=== PATIENT | female | born 1955 | race Two or more races ===

== ENCOUNTER 2020-12-29 00:44 | Emergency (ER) | payer OTHER ==
[~2020-12-29] VITALS: Ht 157.5 cm; Wt 87.1 kg
--- NOTE | 2020-12-29 00:44 | NUR ---
SYNCOPAL EPISODE WHILE VISITING FAMILY IN [facility], PT AAOX4, DENIES ANY SOB/CP, VSS, PENDING ER PROVIDER EVAL
[2020-12-29 01:23] LABS: EOSINOPHILS % (AUTO) 7.1 % (0.0-6.0); HEMATOCRIT 43 % (33-45); HEMOGLOBIN 14.3 g/dL (11.5-14.8); LYMPHOCYTES # (AUTO) 1.1 K/uL (0.8-4.8); LYMPHOCYTES % (AUTO) 14.9 % (20.0-44.0); MEAN CORPUSCULAR HGB CONC 33 g/dl (31.0-36.0); MEAN CORPUSCULAR VOLUME 86 fL (82-100); MONOCYTES # (AUTO) 0.6 K/uL (0.1-1.30); NEUTROPHILS # (AUTO) 5.2 K/uL (1.8-8.9); PLATELET COUNT (AUTO) 159 K/uL (150-450); RED BLOOD CELL COUNT(AUTO) 5.01 MIL/uL (4.0-5.2); WHITE BLOOD COUNT (AUTO) 7.5 K/uL (4.3-11.0)
[2020-12-29] MEDS ORDERED: IV NS 0.9% 1,000 ML BAG IV ONE (01:30)
[2020-12-29 01:32] LABS: CARBON DIOXIDE 23 mmol/L (21-32); CHLORIDE 105 mmol/L (98-107); CREATININE 0.7 mg/dL (0.6-1.3); GLUCOSE 117 mg/dL (74-106); POTASSIUM 3.2 mmol/L (3.5-5.1); SODIUM SERUM 141 mmol/L (136-145); UREA NITROGEN, BLOOD 15 mg/dL (7-18)
[2020-12-29 01:39] LABS: ALANINE AMINOTRANSFERASE 71 U/L (12-78); ALBUMIN 3.8 g/dL (3.4-5.0); ALKALINE PHOSPHATASE 116 U/L (46-116); ASPARTATE AMINOTRANSFERASE 67 U/L (15-37); BILIRUBIN,DIRECT 0.2 mg/dL (0.0-0.2); BILIRUBIN,TOTAL 0.6 mg/dL (0.2-1.0); TOTAL PROTEIN, SERUM 8.5 g/dL (6.4-8.2)
[2020-12-29 01:42] LABS: CALCIUM, SERUM 8.9 mg/dL (8.5-10.1)
[2020-12-29] MEDS ORDERED: LORAZEPAM 1 MG TABLET PO ONE (02:00)
[2020-12-29] MEDS ORDERED: LORAZEPAM 0.5 MG TABLET ONE (02:13)
--- NOTE | 2020-12-29 02:38 | NUR ---
Patient discharged to home in stable condition. Written and verbal after care instructions given. Patient verbalizes understanding of instruction. IV removed. Catheter intact and site benign. Pressure and 4x4 applied to site. No bleeding noted.
[2020-12-29 04:14] VITALS: BP 154/89
== END 2020-12-29 04:14 | disposition home or self-care (01) ==
LOC: ER 01:08
DX: R55 Syncope and collapse (principal); F43.9 Reaction to severe stress, unspecified; I10 Essential (primary) hypertension; Z86.73 Personal history of transient ischemic attack (TIA), and cerebral infarction without residual deficits
CPT/HCPCS: 36415; 70450; 71045; 80048; 80076; 84484; 85025; 85730; 93005; 96360; 99285; J7030